=== PATIENT | female | born 1965 | race African-American/Black ===

== ENCOUNTER 2020-07-17 08:02 | Day surgery (SDC) | payer BC ==
[2020-07-15 12:28] VITALS: BMI 27.4
[2020-07-17 10:17] VITALS: PULSE 73
[2020-07-17 10:35] VITALS: BP 110/65; TEMP 98
== END 2020-07-17 10:50 | disposition home or self-care (01) ==
LOC: FASU-ENDO 08:02
PROVIDERS: ATTEND Internal Medicine Gastroenterology
PROC: 0DBN8ZX Excision of Sigmoid Colon, Via Natural or Artificial Opening Endoscopic, Diagnostic (ICD-10-PCS; principal; 2020-07-17 09:30)
DX: Z12.11 Encounter for screening for malignant neoplasm of colon (principal); D12.5 Benign neoplasm of sigmoid colon
CPT/HCPCS: 88305-TC